=== PATIENT | male | born 1980 | race Two or more races ===

== ENCOUNTER 2020-07-31 21:25 | Emergency (ER) | payer OTHER ==
[~2020-07-31] VITALS: Ht 175.3 cm; Wt 145.1 kg
[2020-07-31] MEDS ORDERED: CEPHALEXIN500 MG ORAL (21:56)
[2020-07-31] MEDS ORDERED: EPIPEN 2-P0.3 MG/0.3 IM (21:56)
[2020-07-31] MEDS ORDERED: BENADRYL25 MG ORAL (21:56)
--- NOTE | 2020-07-31 21:56 | Emergency Room Report ---
History of Present Illness General Chief Complaint: Skin Rash/Abscess Source: Patient Present Illness HPI 39-year-old obese male complains of itchy rash to the back x2 days. States he went to the beach 2 days ago and did not wear sunscreen. He got a sunburn and states now his entire back is itchy and everytime he scratches it get worse. Denies recent travel, ill contacts, new soaps or detergents, or dietary changes. Denies sore throat, fever, n/v/d, CP, sob or other symptoms. The patient's symptoms were gradual onset, severity was moderate, duration since 2 days. Quality: Itching Past medical history: Diabetes, hernia Past surgical history: Denies Smoking: Denies Alcohol use: Heavy Drug use: Denies Review of systems: CONST: No fevers or chills, No night sweats PULMONARY: No productive cough, No shortness of breath CARDIAC: No chest pain, No palpitations GI: No vomiting, No diarrhea , No melena_or_BRBPR : No dysuria, No hematuria, No discharge NEURO: No new_focal_weakness_or_numbness, No confusion, No vision changes 14 point Review of Systems is otherwise negative except per HPI Physical Exam: GENERAL: Awake_alert_ nontoxic, no acute distress Spo2 98% on RA -normal EYES: Extraocular muscles are intact. Conjunctivae clear. Lids without swelling ENT: External nose and ear normal_in_appearance. Oropharynx clear. Head_ atraumatic, Moist_oral_mucosa NECK: No JVD. No meningismus. No thyromegaly. Supple. Trachea midline RESP: Normal respiratory effort. Symmetric rise. No stridor. Clear_to_ auscultation_No_rales_No_wheezes CARDIAC: Regular rate and regular rhytm. No_significant pedal edema. ABDOMEN: Soft. Nondistended. Nontender_No_rebound_or_guarding. Easily reducible anterior abdominal hernia no mass MSK: Normal muscle tone, without rigidity. Extremities without asymmetric deformity or swelling. SKIN: Warm and dry. No visible cyanosis or pallor Unspecified dermatitis is to the upper and lower back. Negative Nikolsky sign. No palpable crepitus. No lymphangitic streaking. NEUROLOGIC: Alert, oriented x3. Motor_and_sensation_grossly_intact. No truncal ataxia. Gait_normal Psych: Normal mood and affect, normal judgment and insight - COORDINATION OF CARE Case was discussed with: Patient Medical Decision Making/Plan: DDX: Dermatitis, sun rash, folliculitis, doubt allergic reaction Patient has been scratching and is cellulitic. Initial VSS WNL. Patient is afebrile. Negative Nikolsky sign. Mild cellulitis from scratching. Airway is intact with no stridor, drooling, or increased WOB. No oral, tongue or lip swelling noted. Patient appears to be presenting with mild to moderate dermatitis vs allergic reaction, there is no evidence of angioedema, no oral involvement, no difficulty breathing or nausea vomiting. Patient is nontoxic and well-appearing the patient is tolerating fluids. The findings are minimal and due to nonprogression of symptoms here the patient is safe to discharge home. The patient feels comfortable with plan and will return immediately if symptoms begin to worsen. Patient given a dose of steroids and Benadryl here in the emergency department. Patient will be discharged with an EpiPen and Benadryl. Will also give Keflex due to unspecified dermatitis. Offered social work and homeless resources, however patient declined Patient was instructed to avoid all potential allergic stimuli in the future. also to wear sunscreen when out in the sun. The patient was instructed to avoid potential precipitating factor and to follow up with their regular physician for referral to program eligibility specialist for definitive allergy testing. Pertinent results reviewed with the patient. I educated the patient on the current treatment plan including the risks, benefits, and alternatives. I also discussed the extent and limitations of the current evaluation. The patient expressed understanding and agreement with plan. I recommended PMD follow-up within 1-2 days for wound check of his back. Also recommend outpatient follow up for his hernia. Also advised that the patient return to the Emergency Department as soon as possible if they experience any new, persistent, or worsening symptoms. Allergies: Coded Allergies: No Known Allergies (Unverified , 07/31/20) COVID-19 Screening Contact w/high risk pt: No Experienced COVID-19 symptoms?: No COVID-19 Testing performed SERVICE TECH: No Nursing Documentation-PMH Past Medical History: No History, Except For Hx Asthma: Yes Physical Exam Vital Signs Date Time Temp Pulse Resp B/P (MAP) Pulse Ox O2 Delivery O2 Flow Rate FiO2 07/31/20 21:31 98.4 88 20 125/64 (84) 95 Room Air Sp02 EP Interpretation: reviewed, normal Medical Decision Making Diagnostic Impression: Primary Impression: Rash and other nonspecific skin eruption Last Vital Signs Date Time Temp Pulse Resp B/P (MAP) Pulse Ox O2 Delivery O2 Flow Rate FiO2 07/31/20 21:31 98.4 88 20 125/64 (84) 95 Room Air Disposition: HOME, SELF-CARE Admit Decision Time: 21:52 Condition: Stable Scripts Diphenhydramine Hcl* (BENADRYL*) 25 Mg Capsule 25 MG ORAL Q6H PRN for Itching for 10 Days, #20 CAP Prov: Mela Spence D.O. 07/31/20 Epinephrine (Epipen 2-Tesfaye) 0.3 Mg/0.3 Ml Auto.injct 0.3 MG IM ONCE for anaphylaxis for 1 Day, #1 EA Prov: Mela Spence D.O. 07/31/20 Cephalexin* (KEFLEX*) 500 Mg Capsule 500 MG ORAL EVERY 12 HOURS, #14 CAP 0 Refills Prov: Mela Spence D.O. 07/31/20 Patient Instructions: Rash Additional Instructions: Instructions for patient/communication technician: Follow up with your physician in 1-2 days for wound check Follow-up with your doctor sooner if your condition requires a more timely clinical reevaluation. Return to the emergency department immediately if you feel that your condition is worsening or if you have any new or concerning symptoms. Review your discharge instructions and take any prescriptions given as instructed. Mela Spence D.O. Jul 31, 2020 21:56
[2020-07-31] MEDS ORDERED: DiphenhydrAMINE 50mg/ml Inj IM ONE (22:00)
[2020-07-31] MEDS ORDERED: Cephalexin 250mg/5ml Susp 100mL Bottle ORAL ONE (22:00)
[2020-07-31 22:10] VITALS: BP 125/64
== END 2020-07-31 22:10 | disposition home or self-care (01) ==
LOC: EMR 21:53
DX: R21 Rash and other nonspecific skin eruption (principal); J45.909 Unspecified asthma, uncomplicated; E11.9 Type 2 diabetes mellitus without complications; K46.9 Unspecified abdominal hernia without obstruction or gangrene; E66.9 Obesity, unspecified; Z68.42 Body mass index [BMI] 45.0-49.9, adult
CPT/HCPCS: 96372; J1200; Z7502; 99283